=== PATIENT | male | born 1980 | race Caucasian/White ===

== ENCOUNTER → 2020-08-16 | Outpatient (CLI) | payer OTHER ==
[2020-08-16 12:10] LABS: HEMOGLOBIN 14.7 gm/dl (14.0-17.5); RED BLOOD COUNT 4.8 M/UL (4.20-5.50); WHITE BLOOD COUNT 9.7 K/UL (4.5-11.0)
[2020-08-16 12:34] LABS: BUN/CREATININE RATIO 14 (0-10)
== END ==
LOC: LAB 11:25
PROVIDERS: Family Medicine
DX: R12 Heartburn (principal); N64.4 Mastodynia; I10 Essential (primary) hypertension
CPT/HCPCS: 36415; 80053; 80061; 84146; 84443; 85025

== ENCOUNTER → 2022-01-08 | Outpatient (CLI) | payer OTHER ==
[2022-01-08 11:56] LABS: HEMOGLOBIN 14.2 gm/dl (14.0-17.5); RED BLOOD COUNT 4.7 M/UL (4.20-5.50); WHITE BLOOD COUNT 14.5 K/UL (4.5-11.0)
[2022-01-08 12:18] LABS: BUN/CREATININE RATIO 19 (0-10)
== END ==
LOC: LAB 10:20
PROVIDERS: Radiology Radiation Oncology
DX: F32.9 Major depressive disorder, single episode, unspecified (principal); I10 Essential (primary) hypertension
CPT/HCPCS: 36415; 80053; 84443; 85027